=== PATIENT | male | born 1965 | race Caucasian/White ===

== ENCOUNTER 2018-12-11 06:47 | Emergency (ER) | payer BC ==
[2018-12-11] MEDS ORDERED: Sodium Chloride 0.9% 10 ML Syringe FLUSH PRN (06:55)
[2018-12-11] MEDS ORDERED: Ondansetron 4 MG/2 ML SDV IVPUSH ONE (06:55)
[2018-12-11] MEDS ORDERED: Ketorolac 30 MG/ML SDV IVPUSH ONE (06:55)
[2018-12-11] MEDS ORDERED: Sodium Chloride 0.9% 1,000 ML IV SCH (07:00)
--- NOTE | 2018-12-11 07:23 | EDM.PDOC ---
ED HPI GENERAL MEDICAL PROBLEM - General Chief Complaint: Abdominal Pain Stated Complaint: BACK PAIN Time Seen by Provider: 12/11/18 07:19 Source of Information: Reports: Patient History Limitations: Reports: No Limitations - History of Present Illness INITIAL COMMENTS - FREE TEXT/NARRATIVE: Presents with right flank pain since 444 this am, associated with N/V. Denies injury. Denies prior h/o kidney stones. Onset: Today Onset Time: 04:45 Location: Reports: Abdomen, Radiates to (back) Quality: Reports: Ache Severity: Moderate Associated Symptoms: Reports: Nausea/Vomiting - Related Data Allergies Allergy/AdvReac Type Severity Reaction Status Date / Time No Known Allergies Allergy Verified 12/11/18 08:05 Home Meds: Home Meds Acetaminophen/oxyCODONE [Percocet 325-5 MG] 1 - 2 each PO Q6H PRN #16 tab [Rx] Ondansetron HCl [Zofran] 4 mg PO Q6H PRN #10 tablet 12/11/18 [Rx] Tamsulosin HCl [Flomax] 0.4 mg PO DAILY #15 cap.er.24h 12/11/18 [Rx] Past Medical History - Past Health History Medical/Surgical History: Denies Medical/Surgical History Social & Family History - Tobacco Use Smoking Status *Q: Never Smoker ED ROS GENERAL - Review of Systems Review Of Systems: ROS reveals no pertinent complaints other than HPI. ED EXAM, GI/ABD - Physical Exam Exam: See Below Exam Limited By: No Limitations General Appearance: Alert, WD/WN, No Apparent Distress Nose: Normal Inspection Throat/Mouth: No Airway Compromise Head: Atraumatic, Normocephalic Neck: Supple Respiratory/Chest: No Respiratory Distress, Lungs Clear, Normal Breath Sounds Cardiovascular: Regular Rate, Rhythm, No Murmur GI/Abdominal Exam: Normal Bowel Sounds, Soft, No Distention, Tender (moderate RLQ). No: Distended, Rigid, Rebound Back Exam: CVA Tenderness (R) Extremities: Normal Range of Motion Neurological: Alert, Normal Cognition, No Motor/Sensory Deficits Psychiatric: Normal Affect, Normal Mood Skin Exam: Warm, Dry, Intact Course - Vital Signs Last Recorded V/S: Last Vital Signs Temp 36.3 C 12/11/18 06:50 Pulse 59 L 12/11/18 06:50 Resp 18 12/11/18 06:50 BP 134/62 12/11/18 06:50 Pulse Ox 98 12/11/18 06:50 - Orders/Labs/Meds Orders: Active Orders 24 hr Category Date Time Status Abdomen Pelvis wo Cont [CT] Stat Exams 12/11/18 06:55 Taken Sodium Chloride 0.9% [Normal Saline] 1,000 ml Med 12/11/18 07:00 Active IV ASDIRECTED Sodium Chloride 0.9% [Saline Flush] Med 12/11/18 06:55 Active 10 ml FLUSH ASDIRECTED PRN Peripheral IV Insertion Adult [OM.PC] Routine Oth 12/11/18 06:55 Ordered Medication Orders Sodium Chloride (Normal Saline) 1,000 mls @ 999 mls/hr IV ASDIRECTED SUMEET Last Admin: 12/11/18 07:10 Dose: 999 mls/hr Sodium Chloride (Saline Flush) 10 ml FLUSH ASDIRECTED PRN PRN Reason: Keep Vein Open Labs: Laboratory Tests 12/11/18 12/11/18 12/11/18 Range/Units 07:14 07:14 07:35 WBC 9.2 (4.5-12.0) X10-3/uL RBC 5.33 (4.30-5.75) x10(6)uL Hgb 15.9 (13.5-17.8) g/dL Hct 46.5 (30.0-51.3) % MCV 87.2 (80-96) fL MCH 29.8 (27.7-33.6) pg MCHC 34.2 (32.2-35.4) g/dL RDW 12.5 (11.5-15.5) % Plt Count 229 (125-369) X10(3)uL MPV 8.6 (7.4-10.4) fL Neut % (Auto) 77.4 (46-82) % Lymph % (Auto) 15.6 (13-37) % [place] % (Auto) 5.9 (4-12) % Eos % (Auto) 1 (1.0-5.0) % Baso % (Auto) 1 (0-2) % Neut # (Auto) 7.2 (1.6-8.3) # Lymph # (Auto) 1.4 (0.6-5.0) # [place] # (Auto) 0.5 (0.0-1.3) # Eos # (Auto) 0.0 (0.0-0.8) # Baso # (Auto) 0.1 (0.0-0.2) # Sodium 142 (135-145) mmol/L Potassium 3.9 (3.5-5.3) mmol/L Chloride 107 (100-110) mmol/L Carbon Dioxide 22 (21-32) mmol/L BUN 20 H (7-18) mg/dL Creatinine 1.1 (0.70-1.30) mg/dL Est Cr Clr Drug Dosing TNP Estimated GFR (MDRD) > 60 (>60) BUN/Creatinine Ratio 18.2 (9-20) Glucose 123 H (80-116) mg/dL Calcium 9.1 (8.6-10.2) mg/dL Total Bilirubin 0.7 (0.1-1.3) mg/dL AST 28 H (5-25) IU/L ALT 45 H (12-36) U/L Alkaline Phosphatase 98 (56-112) IU/L Total Protein 7.0 (6.0-8.0) g/dL Albumin 3.8 (3.5-5.2) g/dL Globulin 3.2 g/dL Albumin/Globulin Ratio 1.2 Urine Color Yellow (YELLOW) Urine Appearance Clear (CLEAR) Urine pH 6.0 (5.0-6.5) Ur Specific [place] 1.020 (1.010-1.025) Urine Protein Negative (NEGATIVE) mg/dL Urine Glucose (UA) Normal (NORMAL) mg/dL Urine Ketones 15 H (NEGATIVE) mg/dL Urine Occult Blood Negative (NEGATIVE) Urine Nitrite Negative (NEGATIVE) Urine Bilirubin Negative (NEGATIVE) Urine Urobilinogen Normal (NEGATIVE) mg/dL Ur Leukocyte Esterase Negative (NEGATIVE) Urine WBC 0-5 (0-5) Ur Squamous Epith Cells Few H (NS,R,O) Urine Bacteria Few H (NS) Meds: Medications Generic Name Dose Route Start Last Admin Trade Name Freq PRN Reason Stop Dose Admin Sodium Chloride 1,000 mls @ 999 mls/hr 12/11/18 07:00 12/11/18 07:10 Normal Saline IV 999 mls/hr ASDIRECTED SUMEET Administration Sodium Chloride 10 ml 12/11/18 06:55 Saline Flush FLUSH ASDIRECTED PRN Keep Vein Open Discontinued Medications Generic Name Dose Route Start Last Admin Trade Name Mahadq PRN Reason Stop Dose Admin Ketorolac Tromethamine 30 mg 12/11/18 06:55 12/11/18 07:11 Toradol IVPUSH 12/11/18 06:56 30 mg ONETIME ONE Administration Ondansetron HCl 8 mg 12/11/18 06:55 12/11/18 07:13 Zofran IVPUSH 12/11/18 06:56 8 mg ONETIME ONE Administration Oxycodone/Acetaminophen 1 tab 12/11/18 08:18 Percocet 325-5 Mg PO 12/11/18 08:19 ONETIME ONE Tamsulosin HCl 0.4 mg 12/11/18 07:33 12/11/18 07:38 Flomax PO 12/11/18 07:34 0.4 mg ONETIME ONE Administration - Radiology Interpretation Free Text/Narrative:: CT Abd/Pelvis w/o contrast: 3mm distal right ureteral calculus with mild to moderate hydronephrosis. Small intrarenal calculus. Small incidental left adrenal adenoma and right inguinal hernia. - Re-Assessments/Exams Free Text/Narrative Re-Assessment/Exam: 12/11/18 08:23 Symptoms improved. Departure - Departure Time of Disposition: 08:23 Disposition: Home, Self-Care 01 Condition: Good Clinical Impression: Ureterolithiasis - Discharge Information *PRESCRIPTION DRUG MONITORING PROGRAM REVIEWED*: Yes *COPY OF PRESCRIPTION DRUG MONITORING REPORT IN PATIENT LENARD: Not Applicable Prescriptions: Acetaminophen/oxyCODONE [Percocet 325-5 MG] 1 - 2 each PO Q6H PRN #16 tab PRN Reason: Pain Ondansetron HCl [Zofran] 4 mg PO Q6H PRN #10 tablet PRN Reason: Nausea/Vomiting Tamsulosin HCl [Flomax] 0.4 mg PO DAILY #15 cap.er.24h Instructions: Kidney Stones, Thfw-rs-Crig Referrals: Oli El MD [Primary Care Provider] - Reza Girard MD [Ordering Only Provider] - 3 Days Forms: ED Department Discharge Additional Instructions: Fill prescriptions for Percocet, Zofran and Flomax. You may also take Ibuprofen as needed to control pain. Drink plenty of fluids. Follow up with Urology in 2- 3 days. Return to the ER if symptoms worsen.
[2018-12-11] MEDS ORDERED: Tamsulosin 0.4 MG Cap.ER PO ONE (07:33)
[2018-12-11] MEDS ORDERED: Acetaminophen/oxyCODONE 325-5 MG Tab PO ONE (08:18)
== END 2018-12-11 08:51 | disposition home or self-care (01) ==
LOC: FB.ED 06:47
DX: N13.2 Hydronephrosis with renal and ureteral calculous obstruction (principal)
CPT/HCPCS: 36415; 74176; 80053; 81001; 85025; 96361; 96374; 96375; 99284; A9270; J1885; J2405; J7030

== ENCOUNTER 2020-12-02 18:39 | Emergency (ER) | payer BC ==
[2020-12-02] MEDS ORDERED: Acetaminophen/HYDROcodone 325-5 MG Tab PO ONE (18:40)
[2020-12-02] MEDS ORDERED: Sodium Chloride 0.9% 10 ML Syringe FLUSH PRN (19:02)
[2020-12-02] MEDS ORDERED: Ketorolac 30 MG/ML SDV IVPUSH ONE (19:02)
[2020-12-02] MEDS ORDERED: Ondansetron 4 MG/2 ML SDV IVPUSH ONE (19:02)
--- NOTE | 2020-12-02 19:42 | EDM.PDOC ---
ED HPI GENERAL MEDICAL PROBLEM - General Stated Complaint: kidney stones Time Seen by Provider: 12/02/20 19:41 Source of Information: Reports: Patient History Limitations: Reports: No Limitations - History of Present Illness INITIAL COMMENTS - FREE TEXT/NARRATIVE: Chapo complains of severe right flank pain x 12hrs.Associated with vomiting,colic and characteristic of a previous attack of kidney stones. 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 - Past Surgical History GI Surgical History: Reports: Hernia, Inguinal ED ROS GENERAL - Review of Systems Review Of Systems: Comprehensive ROS is negative, except as noted in HPI. ED EXAM, RENAL/ - Physical Exam Exam: See Below Exam Limited By: No Limitations General Appearance: Alert, WD/WN, No Apparent Distress Ears: Normal External Exam Nose: Normal Inspection Throat/Mouth: Normal Inspection Head: Atraumatic Neck: Normal Inspection Respiratory/Chest: No Respiratory Distress, Lungs Clear Cardiovascular: Normal Peripheral Pulses Course - Vital Signs Last Recorded V/S: Last Vital Signs Temp 98.4 F 12/02/20 18:40 Pulse 74 12/02/20 18:40 Resp 20 12/02/20 18:40 BP 141/81 H 12/02/20 18:40 Pulse Ox 96 12/02/20 18:40 - Orders/Labs/Meds Orders: Active Orders 24 hr Category Date Time Status Abdomen Pelvis wo Cont [CT] Stat Exams 12/02/20 19:02 Taken Sodium Chloride 0.9% [Saline Flush] Med 12/02/20 19:02 Active 10 ml FLUSH ASDIRECTED PRN Peripheral IV Insertion Adult [OM.PC] Routine Oth 12/02/20 19:02 Ordered Medication Orders Sodium Chloride (Sodium Chloride 0.9% 10 Ml Syringe) 10 ml FLUSH ASDIRECTED PRN PRN Reason: Keep Vein Open Labs: Laboratory Tests 12/02/20 12/02/20 12/02/20 Range/Units 19:15 19:15 19:15 WBC 12.3 H (3.2-10.1) x10-3/uL RBC 4.82 (3.90-5.90) x10(6)uL Hgb 13.9 (12.9-17.7) g/dL Hct 42.3 (38.3-50.1) % MCV 87.7 (80.8-98.7) fL MCH 28.8 (27.0-33.3) pg MCHC 32.8 (28.7-35.3) g/dL RDW 13.5 (12.4-15.0) % Plt Count 281 (117-477) x10(3)uL MPV 8.4 (6.7-11.0) fL Neut % (Auto) 84.9 H (40.3-71.8) % Lymph % (Auto) 6.8 L (15.8-45.3) % [place] % (Auto) 7.5 (5.5-15.2) % Eos % (Auto) 0.3 (0.1-6.8) % Baso % (Auto) 0.5 (0.3-3.8) % Neut # (Auto) 10.4 H (1.7-6.9) x10-3/uL Lymph # (Auto) 0.8 (0.5-4.5) x10-3/uL [place] # (Auto) 0.9 (0.0-1.2) x10-3/uL Eos # (Auto) 0.0 (0.0-0.6) x10-3/uL Baso # (Auto) 0.1 (0.0-0.3) x10-3/uL Sodium 132 L D (135-145) mmol/L Potassium 3.9 (3.5-5.3) mmol/L Chloride 96 L D (100-110) mmol/L Carbon Dioxide 23 (21-32) mmol/L BUN 15 (7-18) mg/dL Creatinine 1.3 (0.70-1.30) mg/dL Est Cr Clr Drug Dosing TNP Estimated GFR (MDRD) 58 L (>60) BUN/Creatinine Ratio 11.5 (9-20) Glucose 124 H (80-116) mg/dL Calcium 7.9 L (8.6-10.2) mg/dL Urine Color Yellow (YELLOW) Urine Appearance Clear (CLEAR) Urine pH 5.0 (5.0-6.5) Ur Specific [place] 1.015 (1.010-1.025) Urine Protein Trace (NEGATIVE) mg/dL Urine Glucose (UA) Normal (NORMAL) mg/dL Urine Ketones 15 H (NEGATIVE) mg/dL Urine Occult Blood Moderate H (NEGATIVE) Urine Nitrite Negative (NEGATIVE) Urine Bilirubin Negative (NEGATIVE) Urine Urobilinogen Normal (NEGATIVE) mg/dL Ur Leukocyte Esterase Negative (NEGATIVE) Urine RBC 0-5 (0-5) Urine WBC 0-5 (0-5) Ur Squamous Epith Cells Occasional (NS,R,O) Urine Bacteria Rare H (NS) Meds: Medications Generic Name Dose Route Start Last Admin Trade Name Freq PRN Reason Stop Dose Admin Sodium Chloride 10 ml 12/02/20 19:02 Sodium Chloride 0.9% 10 Ml Syringe FLUSH ASDIRECTED PRN Keep Vein Open Discontinued Medications Generic Name Dose Route Start Last Admin Trade Name Freq PRN Reason Stop Dose Admin Ketorolac Tromethamine 30 mg 12/02/20 19:02 12/02/20 19:14 Ketorolac 30 Mg/Ml Sdv IVPUSH 12/02/20 19:03 30 mg ONETIME ONE Administration Ondansetron HCl 8 mg 12/02/20 19:02 12/02/20 19:14 Ondansetron 4 Mg/2 Ml Sdv IVPUSH 12/02/20 19:03 8 mg ONETIME ONE Administration Departure - Departure Time of Disposition: 20:38 Disposition: Home, Self-Care 01 Condition: Good Clinical Impression: Ureteric colic - Discharge Information Referrals: Oli El MD [Primary Care Provider] - Sepsis Event Note (ED) - Focused Exam Vital Signs: Vital Signs Temp Pulse Resp BP Pulse Ox 12/02/20 18:40 98.4 F 74 20 141/81 H 96 - Problem List & Annotations (1) Ureterolithiasis SNOMED Code(s): 62099869 Code(s): N20.1 - CALCULUS OF URETER Status: Acute Current Visit: No - Problem List Review Problem List Initiated/Reviewed/Updated: Yes - My Orders Last 24 Hours: My Active Orders 12/02/20 19:02 Abdomen Pelvis wo Cont [CT] Stat Sodium Chloride 0.9% [Saline Flush] 10 ml FLUSH ASDIRECTED PRN Peripheral IV Insertion Adult [OM.PC] Routine - Assessment/Plan Last 24 Hours: My Active Orders 12/02/20 19:02 Abdomen Pelvis wo Cont [CT] Stat Sodium Chloride 0.9% [Saline Flush] 10 ml FLUSH ASDIRECTED PRN Peripheral IV Insertion Adult [OM.PC] Routine Plan: CT showed a 5 mm stone. I will send him home after 1 L of Normal saline and Some Toradol. Take [place]. See PCP tomorrow
[2020-12-02] MEDS ORDERED: Tamsulosin 0.4 MG Cap.ER PO ONE (20:46)
== END 2020-12-02 21:00 | disposition home or self-care (01) ==
LOC: FB.ED 18:39
DX: N23 Unspecified renal colic (principal)
CPT/HCPCS: 36415; 74176; 80048; 81001; 85025; 96374; 96375; 99284-25; A9270-GY; J1885; J2405